=== PATIENT | male | born 1985 | race Caucasian/White ===

== ENCOUNTER 2016-11-09 07:02 | Emergency (ER) | payer OTHER ==
[2016-11-09] MEDS ORDERED: predniSONE 20 MG TAB PO ONE (07:14)
[2016-11-09] MEDS ORDERED: diphenhydrAMINE 25 MG CAP PO ONE (07:14)
[2016-11-09] MEDS ORDERED: FAMOTIDINE 20 MG TAB PO ONE (07:14)
[2016-11-09 07:17] VITALS: RESP 18
--- NOTE | 2016-11-09 07:20 | UCPHY ---
H & P Time Seen by Provider: 11/09/16 07:14 Patient Type: New HPI/ROS: HPI Swollen uvula. 31-year-old male by private vehicle. This patient reports he has had upper respiratory infection symptoms including a mild nonproductive cough and nasal congestion for the last 24 hours. Last night he reports the sensation of his uvula swelling and touching the back of his throat when he swallows. He denies any sore throat or pain. No difficulty swallowing. No voice changes or difficulty breathing. No stridor. ROS: Constitutional: No fever, no chills. No weakness. Eyes: No discharge. No changes in vision. ENT: No sore throat. As above. Respiratory: As above. No shortness of breath. Musculoskeletal: No back pain. No neck pain. No myalgias or arthralgias. Skin: No rashes. Neurological: No headache. No focal weakness or altered sensation. Past medical history: He takes synthetic testosterone. No other medications except for ibuprofen. Social history: Nonsmoker. Here by himself. Physical Exam: General Appearance: Alert, no distress. This patient is responding to questions appropriately and in full sentences. This patient appears well- hydrated and well-nourished. Eyes: Pupils equal and round no pallor or injection. No lid edema, erythema or injection. ENT, Mouth: Mucous membranes are moist. Mildly swollen and edematous uvula. No significant pharyngeal erythema. The right pharyngeal arch is slightly larger with extension into the uvula on that side than the left pharyngeal arch. No exudates. No stridor on auscultation of the neck. No voice changes. Respiratory: There are no retractions, lungs are clear to auscultation with good air movement bilaterally. Cardiovascular: Regular rate and rhythm. No murmur. Neurological: Motor sensory function is grossly intact. Cranial nerves are normal. Gait is normal. Skin: Warm and dry, no rashes. Musculoskeletal: Neck is supple and nontender. No cervical, submental or submandibular lymphadenopathy. Extremities are symmetrical. All joints range without pain or impingement. Psychiatric: No agitation. No depression. Database: Rapid strep-negative. EKG: Imaging: Procedures: Emergency department course: After my evaluation, the patient was given 80 mg of oral prednisone, 50 mg of Benadryl and 40 mg of Pepcid. 8:20 a.m., patient re-evaluated. Resting comfortably at this time. Repeat pharyngeal exam he still has some uvular swelling but it has decreased. No voice changes. No stridor. No difficulty swallowing. He feels comfortable going home and I feel he is safe for discharge. He will be prescribed prednisone and antihistamines to be taken over the next few days. Return to emergency department/urgent care precautions have been discussed in detail with him. All of his questions were answered. He was discharged in good condition. Differential Diagnosis: The differential diagnosis on this patient includes but is not limited to angioedema, localized inflammatory reaction of the uvula, allergic reaction. Anaphylaxis, anaphylactoid reaction unlikely. This represents a partial list of diagnoses considered. These considerations are based on history, physical exam, past history, reassessment and diagnostic testing. Smoking Status: Current every day smoker Constitutional: Initial Vital Signs Temperature (C) 36.3 C 11/09/16 07:15 Heart Rate 96 11/09/16 07:15 Respiratory Rate 18 11/09/16 07:15 Blood Pressure 140/91 H 11/09/16 07:15 O2 Sat (%) 98 11/09/16 07:15 O2 Delivery Mode Room Air Allergies/Adverse Reactions: Penicillins Allergy (Verified 11/09/16 07:12) Home Medications: Medication Instructions Recorded Famotidine [Pepcid] 40 mg PO BID #10 tab 11/09/16 Hcg 11/09/16 TESTOSTERONE 11/09/16 diphenhydrAMINE [Benadryl 50 MG 50 mg PO Q4-6PRN PRN #10 cap 11/09/16 (*)] predniSONE [prednisone 20mg (RX)] 60 mg PO DAILY #9 tab 11/09/16 Medical Decision Making - Data Points Laboratory Results: 11/09/16 11/09/16 Unknown 08:10 Group A Strep Screen NEGATIVE (NEGATIVE) Group A Strep DNA Pending Medications Given: Discontinued Medications Diphenhydramine HCl (Benadryl) 50 mg PO EDNOW ONE Stop: 11/09/16 07:15 Last Admin: 11/09/16 07:22 Dose: 50 mg Famotidine (Pepcid) 40 mg PO EDNOW ONE Stop: 11/09/16 07:15 Last Admin: 11/09/16 07:23 Dose: 40 mg Prednisone (Prednisone) 80 mg PO EDNOW ONE Stop: 11/09/16 07:15 Last Admin: 11/09/16 07:23 Dose: 80 mg Departure - Departure Disposition: Home, Routine, Self-Care Clinical Impression: Uvular edema Condition: Good Instructions: Uvulitis (ED) Additional Instructions: Read and follow provided instructions. Follow-up with your primary care physician tomorrow for re-evaluation. Take medication as prescribed. Return to the emergency department for worsening swelling, voice changes, stridor, difficulty swallowing or other serious concerns. Referrals: [place],. [Primary Care Provider] - As per Instructions Prescriptions: diphenhydrAMINE [Benadryl 50 MG (*)] 50 mg PO Q4-6PRN PRN #10 cap PRN Reason: Inflammation Famotidine [Pepcid] 40 mg PO BID #10 tab predniSONE [prednisone 20mg (RX)] 60 mg PO DAILY #9 tab - PQRS PQRS Measurement: Not applicable.
[2016-11-09 08:32] VITALS: BP 144/67; PULSE 82; TEMP 97.7; O2SAT 96
== END 2016-11-09 08:32 | disposition home or self-care (01) ==
LOC: CED 07:02
DX: K12.2 Cellulitis and abscess of mouth (principal)
CPT/HCPCS: 87880-PO; 99203-PO; G0463-PO